=== PATIENT | female | born 1960 | race Caucasian/White ===

== ENCOUNTER 2019-03-02 20:04 | Emergency (ER) | payer OTHER ==
[~2019-03-02] VITALS: Ht 167.6 cm; Wt 91.0 kg
[2019-03-02] MEDS ORDERED: SODIUM CHLORIDE 0.9% 1,000 ML IV ONE (20:49)
[2019-03-02] MEDS ORDERED: ONDANSETRON HCL 4MG/2ML INJ IV STA (20:49)
[2019-03-02] MEDS ORDERED: MORPHINE SULFATE 4 MG/ML CPJ (NOT FOR IM USE) IV STA (20:49)
[2019-03-02 21:05] VITALS: BP 150/65
[2019-03-02 21:17] LABS: BASOPHILS % 0.6 % (0.0-2.0); EOSINOPHILS % 1.6 % (0.0-5.0); HEMATOCRIT. 40.4 % (36.0-48.0); HEMOGLOBIN. 13.9 g/dL (12.0-16.0); LYMPHOCYTES % 34.7 % (20.0-50.0); MEAN CORPUSCULAR HEMOGLOBIN 31.9 pg (28.0-32.0); MEAN CORPUSCULAR VOLUME 92.4 fL (81.0-99.0); MEAN PLATELET VOLUME 6.4 fl (7.4-10.4); MONOCYTES % 6.7 % (2.0-8.0); NEUTROPHILS % 56.4 % (40.0-76.0); PLATELET 301 x1000/uL (130-400); RED BLOOD CELL COUNT 4.38 mill/uL (4.2-5.4)
[2019-03-02 21:24] LABS: CHLORIDE 105 mEq/L (98-107)
[2019-03-02 21:27] LABS: PARTIAL THROMBOPLASTIN TIME 29.3 sec (23.4-31.0)
[2019-03-03] MEDS ORDERED: IOHEXOL-300 100 ML BOTTLE ONE (00:26)
== END 2019-03-03 01:11 | disposition home or self-care (01) ==
LOC: ER 20:04
DX: R07.89 Other chest pain (principal); Z90.49 Acquired absence of other specified parts of digestive tract; Z90.89 Acquired absence of other organs
CPT/HCPCS: 36415; 71045; 71260; 80053; 83880; 84484; 85025; 85610; 85730; 93005; 96374; 96375; 99284; J2270; J2405; J7030; Q9967; Z7610

== ENCOUNTER 2019-10-08 17:36 | Emergency (ER) | payer OTHER ==
[~2019-10-08] VITALS: Ht 167.6 cm; Wt 83.0 kg
[2019-10-08] MEDS ORDERED: GABA800T97 PO (18:10)
[2019-10-08] MEDS ORDERED: VISCOUS LIDOCAINE 2% 15 ML UDC PO STA (21:43)
[2019-10-08] MEDS ORDERED: DICYCLOMINE 10 MG/5 ML ORAL SYR PO STA (21:43)
[2019-10-08] MEDS ORDERED: MAGNESIUM/ALUMINUM HYDROXIDE/SIMETHICONE 30ML UDC PO STA (21:43)
[2019-10-08] MEDS ORDERED: ONDANSETRON 4MG ODT PO STA (21:43)
[2019-10-08 23:01] LABS: BASOPHILS % 0.5 % (0.0-2.0); HEMATOCRIT. 45.3 % (36.0-48.0); HEMOGLOBIN. 15.8 g/dL (12.0-16.0); LYMPHOCYTES % 34.5 % (20.0-50.0); MEAN CORPUSCULAR HEMOGLOBIN 32.4 pg (28.0-32.0); MEAN CORPUSCULAR VOLUME 93.1 fL (81.0-99.0); MEAN PLATELET VOLUME 6.5 fl (7.4-10.4); MONOCYTES % 10.2 % (2.0-8.0); NEUTROPHILS % 53.8 % (40.0-76.0); PLATELET 257 x1000/uL (130-400); RED BLOOD CELL COUNT 4.87 mill/uL (4.2-5.4)
[2019-10-08 23:02] LABS: CHLORIDE 101 mEq/L (98-107)
[2019-10-09] MEDS ORDERED: POTASSIUM CHLORIDE 20MEQ TABLET SR PO ONE
[2019-10-09 02:25] VITALS: BP 119/66
== END 2019-10-09 02:37 | disposition home or self-care (01) ==
LOC: ER 17:36
DX: R11.2 Nausea with vomiting, unspecified (principal); R19.7 Diarrhea, unspecified; Z90.49 Acquired absence of other specified parts of digestive tract; Z98.890 Other specified postprocedural states
CPT/HCPCS: 36415; 80053; 83690; 85025; 93005; 99284; Q0162

== ENCOUNTER 2020-07-11 16:10 | Emergency (ER) | payer OTHER ==
[~2020-07-11] VITALS: Ht 167.6 cm; Wt 86.0 kg
[~2020-07-11 16:10] MED LIST: GABA800T97 PO
[2020-07-11 16:19] VITALS: BP 177/73
[2020-07-11] MEDS ORDERED: ONDANSETRON HCL 4MG/2ML INJ IV STA (20:25)
[2020-07-11] MEDS ORDERED: SODIUM CHLORIDE 0.9% 500 ML IV ONE (20:30)
== END 2020-07-11 21:10 | disposition left against medical advice (07) ==
LOC: ER 16:10
DX: Z53.21 Procedure and treatment not carried out due to patient leaving prior to being seen by health care provider (principal)
CPT/HCPCS: 93005; J7030

== ENCOUNTER 2025-06-06 15:29 | Emergency (ER) | payer MEDICARE, MEDICAID ==
[~2025-06-06] VITALS: Ht 167.6 cm; Wt 91.0 kg
[2025-06-06 15:37] VITALS: O2SAT 97
[2025-06-06 15:40] VITALS: BP 147/58; PULSE 96; RESP 16; TEMP 36.8; O2SAT 97
[2025-06-06] MEDS ORDERED: IBUPROFEN 800MG TABLET PO ONE (18:45)
[2025-06-06] MEDS: ACETAMINOPHEN 500MG TABLET PO ONE (19:19)
== END 2025-06-06 20:36 | disposition home or self-care (01) ==
LOC: ER 15:29
DX: S80.12XA Contusion of left lower leg, initial encounter (principal); I10 Essential (primary) hypertension; Z90.49 Acquired absence of other specified parts of digestive tract; W01.0XXA Fall on same level from slipping, tripping and stumbling without subsequent striking against object, initial encounter; Y93.89 Activity, other specified; Y92.89 Other specified places as the place of occurrence of the external cause; Y99.8 Other external cause status
CPT/HCPCS: 99282